=== PATIENT | female | born 1990 | race Caucasian/White ===

== ENCOUNTER 2018-11-17 08:46 | Emergency (ER) | payer OTHER ==
[2018-11-17] MEDS ORDERED: SODIUM CHLORIDE 0.9% 1,000 ML IV ONE (09:15)
[2018-11-17 09:55] LABS: ALBUMIN 3.5 g/dL (3.2-5.5); ALBUMIN/GLOBULIN RATIO 0.9 (1.0-2.2); ALKALINE PHOSPHATASE 80 IU/L (42-121); ALT ALANINE AMINOTRANSFERASE 34 IU/L (10-60); AST ASPARTATE AMINOTRANSFERASE 26 IU/L (10-42); BILIRUBIN,TOTAL 0.4 mg/dL (0.2-1.0); BUN - BLOOD UREA NITROGEN < 5 mg/dL (6-20); CARBON DIOXIDE - CO2 21 mmol/L (21-32); CHLORIDE 103 mmol/L (101-111); CREATININE 0.6 mg/dL (0.4-1.0); GFR - MDRD 121 (>89); GLUCOSE 88 mg/dL (70-100); LIPASE 35 U/L (22-51); SODIUM 133 mmol/L (135-145); TOTAL PROTEIN 7.2 g/dL (6.7-8.2)
[2018-11-17] MEDS ORDERED: ONDANSETRON 4 MG/2 ML VIAL IVP STA (10:42)
--- NOTE | 2018-11-17 10:45 | ED Physician Documentation ---
History of Present Illness - Stated complaint Stated Complaint: N/V - Chief complaint Chief Complaint: Abd Pain - Additonal information Additional information: hx from pt 28 y/o female 19 weeks EGAfollwoed by [facility] [place] whole has had zofran but needs to refill her rx to ED today with head congestion NV X 8 no diarrhea sore throat mild abd pain with vomiting no vag bleed she called [facility] and the phone nurse felt this might be the flu with dehydration and so sent to to the ER Review of Systems Constitutional: denies: Fever Nose: reports: Congestion Throat: reports: Sore throat GI: reports: Nausea, Vomiting. denies: Abdominal Pain, Diarrhea : reports: Now EGA. denies: Vaginal bleeding Endocrine: denies: Easy bruising / bleeding Immunocompromised: denies: Immunocompromised PD PAST MEDICAL HISTORY - Past Medical History Past Medical History: Yes - Past Surgical History Past Surgical History: Yes HEENT: Tonsil/Adenoidectomy - Present Medications Home Medications: Ambulatory Orders Medication Instructions Recorded Confirmed Pnv No.122/Iron/Folic Acid 1 each PO DAILY 11/17/18 11/17/18 [ Multi Tablet] - Allergies Allergies/Adverse Reactions: Allergies Allergy/AdvReac Type Severity Reaction Status Date / Time No Known Drug Allergies Allergy Verified 11/17/18 08:51 - Social History Does the pt smoke?: No Smoking Status: Never smoker Does the pt drink ETOH?: No Does the pt have substance abuse?: No - Immunizations Immunizations are current?: Yes PD ED PE NORMAL - Vitals Vital signs reviewed: Yes - General General: Alert and oriented X 3 - Cardiac Cardiac: RRR - Respiratory Respiratory: No respiratory distress - Abdomen Abdomen: Soft, Non tender - Derm Derm: Normal color - Neuro Neuro: Alert and oriented X 3 Results - Vitals Vitals: Vital Signs - 24 hr 11/17/18 11/17/18 08:49 12:51 Temperature 36.5 C 37.1 C Heart Rate 103 H 85 Respiratory 18 16 Rate Blood Pressure 133/87 H 118/70 O2 Saturation 99 100 Oxygen O2 Source Room air - Labs Labs: Laboratory Tests 11/17/18 11/17/18 11/17/18 09:00 09:00 09:20 Sodium 133 L Potassium 3.4 L Chloride 103 Carbon Dioxide 21 Anion Gap 9.0 BUN < 5 L Creatinine 0.6 Estimated GFR (MDRD) 121 Glucose 88 Calcium 9.0 Total Bilirubin 0.4 AST 26 ALT 34 Alkaline Phosphatase 80 Total Protein 7.2 Albumin 3.5 Globulin 3.7 Albumin/Globulin Ratio 0.9 L Lipase 35 Influenza A (Rapid) Negative Influenza B (Rapid) Negative Group A Strep Rapid Negative PD MEDICAL DECISION MAKING - ED course ED course: flu swab neg lytes fine pt rehydrated and given zofran and feels better will dc Departure - Departure Disposition: 01 Home, Self Care Clinical Impression: Vomiting affecting , Dehydration Condition: Good Instructions: ED Dehydration, ED Nausea Vomiting Follow-Up: [facility] Calero [Provider Group] Comments: Your flu swabs were negative. Your labs looked fine You have been rehydrated and you have a prescription for zofran I write a note for work so you can rest today Forms: Activity restrictions
[2018-11-17 12:52] VITALS: BP 118/70
== END 2018-11-17 13:19 | disposition home or self-care (01) ==
LOC: ED 08:46
DX: O21.9 Vomiting of pregnancy, unspecified (principal); O99.282 Endocrine, nutritional and metabolic diseases complicating pregnancy, second trimester; E86.0 Dehydration; O99.89 Other specified diseases and conditions complicating pregnancy, childbirth and the puerperium; R09.81 Nasal congestion; Z3A.19 19 weeks gestation of pregnancy
CPT/HCPCS: 36415; 80053; 83690; 87070; 87275; 87276; 87430; 96361; 96374; 99283

== ENCOUNTER 2018-11-29 17:31 | Emergency (ER) | payer OTHER ==
--- NOTE | 2018-11-29 18:16 | ED Physician Documentation ---
History of Present Illness - Stated complaint Stated Complaint: ACID reflex-21 weeks . - Chief complaint Chief Complaint: General - History obtained from History obtained from: Patient - History of Present Illness Timing: Yesterday ( at 21 weeks with chest pain since yesterday, dull midstrenal ache different than reflux. No dyspnea. No pain now.) Review of Systems Constitutional: denies: Fever, Chills Cardiac: denies: Palpitations Respiratory: denies: Dyspnea, Cough GI: denies: Vomiting, Diarrhea PD PAST MEDICAL HISTORY - Past Medical History Past Medical History: No - Past Surgical History Past Surgical History: Yes HEENT: Tonsil/Adenoidectomy - Present Medications Home Medications: Ambulatory Orders Medication Instructions Recorded Confirmed Pnv No.122/Iron/Folic Acid 1 each PO DAILY 11/17/18 11/17/18 [ Multi Tablet] Famotidine [Pepcid] 20 mg PO BID #60 tablet 11/29/18 - Allergies Allergies/Adverse Reactions: Allergies Allergy/AdvReac Type Severity Reaction Status Date / Time No Known Drug Allergies Allergy Verified 11/29/18 17:39 - Social History Does the pt smoke?: No Smoking Status: Never smoker Does the pt drink ETOH?: No Does the pt have substance abuse?: No - Immunizations Immunizations are current?: Yes PD ED PE NORMAL - Vitals Vital signs reviewed: Yes - General General: Alert and oriented X 3, No acute distress - HEENT HEENT: PERRL, EOMI, Pharynx benign - Neck Neck: Supple, no meningeal sign, No bony TTP - Cardiac Cardiac: RRR, No murmur - Respiratory Respiratory: No respiratory distress, Clear bilaterally - Abdomen Abdomen: Normal bowel sounds, Soft, Non tender - Extremities Extremities: No edema, No calf tenderness / cord - Neuro Neuro: Alert and oriented X 3, Normal speech - Psych Psych: Normal mood, Normal affect Results - Vitals Vitals: Vital Signs - 24 hr 11/29/18 11/29/18 11/29/18 17:35 18:45 19:45 Temperature 36.8 C 36.5 C Heart Rate 91 89 87 Respiratory 16 18 16 Rate Blood Pressure 135/94 H 119/78 129/82 H O2 Saturation 100 99 100 Oxygen O2 Source Room air - EKG (time done) 1827 Rate: Rate (enter#) (77) Rhythm: NSR [place]: Normal Intervals: Normal NM QRS: Normal Ischemia: Normal ST segments Computer interpretation: Agree with computer - Labs Labs: Laboratory Tests 11/29/18 11/29/18 11/29/18 18:25 18:25 18:25 WBC 11.2 H RBC 3.63 L Hgb 12.0 Hct 33.6 L MCV 92.6 MCH 33.1 H MCHC 35.7 RDW 13.5 Plt Count 356 MPV 6.7 L Neut # (Auto) 8.5 H Lymph # (Auto) 2.0 [place] # (Auto) 0.6 Eos # (Auto) 0.1 Baso # (Auto) 0.0 Absolute Nucleated RBC 0.01 Nucleated RBC % 0.1 D-Dimer Sodium 136 Potassium 3.3 L Chloride 106 Carbon Dioxide 23 Anion Gap 7.0 BUN < 5 L Creatinine 0.5 Estimated GFR (MDRD) 149 Glucose 90 Calcium 8.9 Total Bilirubin 0.5 AST 36 ALT 49 Alkaline Phosphatase 83 Troponin I < 0.04 Total Protein 6.9 Albumin 3.4 Globulin 3.5 Albumin/Globulin Ratio 1.0 Lipase 33 11/29/18 18:25 WBC RBC Hgb Hct MCV MCH MCHC RDW Plt Count MPV Neut # (Auto) Lymph # (Auto) [place] # (Auto) Eos # (Auto) Baso # (Auto) Absolute Nucleated RBC Nucleated RBC % D-Dimer 310.0 H Sodium Potassium Chloride Carbon Dioxide Anion Gap BUN Creatinine Estimated GFR (MDRD) Glucose Calcium Total Bilirubin AST ALT Alkaline Phosphatase Troponin I Total Protein Albumin Globulin Albumin/Globulin Ratio Lipase PD MEDICAL DECISION MAKING - ED course ED course: 28-year-old woman, G one P0 at a little over 20 weeks gestation with chest pain which completely resolved with the administration of GI cocktail. D-dimer is low for her status in . The remainder of her workup is negative. Departure - Departure Disposition: 01 Home, Self Care Clinical Impression: Gastritis Condition: Good Record reviewed to determine appropriate education?: Yes Instructions: ED Gastritis Prescriptions: Famotidine [Pepcid] 20 mg PO BID #60 tablet Comments: Call your doctor to arrange a follow-up appointment, make the next available appointment. In the interim, return anytime if worse or if new symptoms develop. Discharge Date/Time: 11/29/18 20:01
[2018-11-29] MEDS ORDERED: MAG HYDROX/AL HYDROX/SIMETH 30 ML UDC PO STA (18:18)
[2018-11-29] MEDS ORDERED: LIDOCAINE VISCOUS 2% 15 ML UDC MM STA (18:18)
[2018-11-29 18:53] LABS: BASOPHILS % (AUTO) 0.3 %; EOSINOPHILS # (AUTO) 0.1 10^3/uL (0.0-0.7); EOSINOPHILS % (AUTO) 0.5 %; MEAN CORPUSCULAR HEMOGLOBIN 33.1 pg (27.0-31.0); MEAN CORPUSCULAR HGB CONC 35.7 g/dL (32.0-36.0); MEAN CORPUSCULAR VOLUME 92.6 fL (81.0-99.0); MEAN PLATELET VOLUME 6.7 fL (7.9-10.8); MONOCYTES # (AUTO) 0.6 10^3/uL (0.0-1.0); MONOCYTES % (AUTO) 5.4 %; NEUTROPHILS # (AUTO) 8.5 10^3/uL (1.5-6.6); NEUTROPHILS % (AUTO) 75.8 %; PLT - PLATELET COUNT 356 10^3/uL (130-450); RED BLOOD COUNT 3.63 10^6/uL (4.20-5.40); RED CELL DISTRIBUTION WIDTH 13.5 % (12.0-15.0); WHITE BLOOD COUNT 11.2 x10^3/uL (4.8-10.8)
[2018-11-29 19:21] LABS: ALBUMIN 3.4 g/dL (3.2-5.5); ALKALINE PHOSPHATASE 83 IU/L (42-121); ALT ALANINE AMINOTRANSFERASE 49 IU/L (10-60); AST ASPARTATE AMINOTRANSFERASE 36 IU/L (10-42); BILIRUBIN,TOTAL 0.5 mg/dL (0.2-1.0); BUN - BLOOD UREA NITROGEN < 5 mg/dL (6-20); CALCIUM 8.9 mg/dL (8.5-10.3); CARBON DIOXIDE - CO2 23 mmol/L (21-32); CHLORIDE 106 mmol/L (101-111); CREATININE 0.5 mg/dL (0.4-1.0); GFR - MDRD 149 (>89); GLUCOSE 90 mg/dL (70-100); LIPASE 33 U/L (22-51); SODIUM 136 mmol/L (135-145); TOTAL PROTEIN 6.9 g/dL (6.7-8.2)
[2018-11-29] MEDS ORDERED: FAMOTIDINE 20 MG TABLET PO STA (19:38)
[2018-11-29 19:46] VITALS: BP 129/82
== END 2018-11-29 20:01 | disposition home or self-care (01) ==
LOC: ED 17:31
DX: O99.612 Diseases of the digestive system complicating pregnancy, second trimester (principal); K92.89 Other specified diseases of the digestive system; K29.70 Gastritis, unspecified, without bleeding; Z3A.21 21 weeks gestation of pregnancy
CPT/HCPCS: 36415; 80053; 83690; 84484; 85025; 85379; 93005; 99283; A9270